=== PATIENT | female | born 1955 | race Caucasian/White ===

== ENCOUNTER → 2017-06-24 | Outpatient (CLI) | payer MEDICARE ==
[~2017-06-24] MED LIST: ADDERALL XR15 MG PO; ADDERALL10 MG PO; ADDERALL15 MG PO; ADVAIR 250/5028 PUFF IN; ALLEGRA 180MG180 MG PO; ALLEGRA ALLERG180 MG OR; ALPH-E400 IU PO; BACTRIM DS 8001 TAB PO; BENADRYL 25MG C25 MG PO; BUPROPION HCL100 MG PO; ENDOCET 325 MG-1 TAB PO; ESTRADIOL1 MG PO; FAMOTIDINE10 MG PO; FIORICET 325 MG1 TAB PO; FUROSEMIDE 40MG40 M1 PO; GABAPENTIN 400400 MG PO; GABAPENTIN300 MG PO; IMITREX100 MG PO; LUNESTA3 MG PO; METHADONE 10MG10 MG PO; MOTRIN800 MG PO; NEXIUM40 MG PO; OXAZEPAM 10MG C10 M1 PO; PERCOCET 10 MG1 EACH PO; PERCOCET 650 MG1 TAB PO; POTASSIUM CHLO10 MEQ PO; PREMARIN1.25 MG PO; SPIRIVA HA1 PUFF/INH IH; TOPAMAX50 MG PO; TOPIRAMATE 25MG25 MG PO; VITAMIN C500 M1 PO; VITAMIN E800 I1 PO; WELLBUTRIN SR200 MG PO; [UNRECOGNIZED DRUG - REMARK] PO
[2017-06-24 16:50] LABS: LYMPH % 35.4 % (10-50.0)
[2017-06-24 18:41] LABS: HEMOGLOBIN 13.5 g/dL (12.2-16.2)
[2017-06-24 20:42] LABS: BUN 15 mg/dL (7-18)
[2017-06-24 20:59] LABS: GFR (ESTIMATED) 64 ML/MIN (59-)
== END ==
LOC: LAB 16:43
PROVIDERS: Internal Medicine
DX: R10.9 Unspecified abdominal pain (principal); R61 Generalized hyperhidrosis